=== PATIENT | female | born 1965 | race Native Hawaiian/Other Pacific Islander ===

== ENCOUNTER 2018-06-03 10:12 | Emergency (ER) | payer SELFPAY ==
[2018-06-03 10:25] VITALS: BP 111/74; PULSE 61; RESP 16; TEMP 98; O2SAT 98
[2018-06-03] MEDS ORDERED: Tetracaine 0.5% Ophth 2 ML BOTTLE OD ONE (10:34)
--- NOTE | 2018-06-03 10:35 | C.PDOC ---
History Of Present Illness 52 yo female, presents with right eye redness x 2 days. no fevers, no other complaints. started w/o provoking symptoms. Time Seen by Provider: 06/03/18 10:25 Chief Complaint (Nursing): ENT Problem Past Medical History Reviewed: Historical Data, Nursing Documentation, Vital Signs Vital Signs: Last Vital Signs Temp 98 F 06/03/18 10:22 Pulse 61 06/03/18 10:22 Resp 16 06/03/18 10:22 BP 111/74 06/03/18 10:22 Pulse Ox 98 06/03/18 10:35 Family History: States: Unknown Family Hx - Social History Hx Alcohol Use: No Hx Substance Use: No - Immunization History Hx Tetanus Toxoid Vaccination: No Hx Influenza Vaccination: No Hx Pneumococcal Vaccination: No Review Of Systems Eyes: Positive for: Redness Physical Exam - Physical Exam Appears: Well, No Acute Distress Skin: Normal Color, Warm, Dry Eye(s): bilateral: PERRL, EOMI, right: Normal Inspection (right conjunctival injection eomi), Other Nose: Normal Throat: Normal Neck: Normal Cardiovascular: Rhythm Regular Respiratory: Normal Breath Sounds Gastrointestinal/Abdominal: Normal Exam Back: Normal Inspection Extremity: Normal ROM ED Course And Treatment O2 Sat by Pulse Oximetry: 98 Medical Decision Making Medical Decision Making: suspect conjunctiviis pt denies trauma. iop 17 (95%). advise outpt fu. no contacts Disposition - Disposition Referrals: Remi Pal [Staff Provider] - Disposition: HOME/ ROUTINE Disposition Time: 10:51 Condition: STABLE Additional Instructions: please follow up with specialist. you may need further testing and workup . return to er with worsening symptoms or concerns. Prescriptions: Polymyxin/Trimethoprim Sulfate [Polytrim Ophth Soln] 1 drop RIGHTEYE Q4 #1 bottle Instructions: Conjunctivitis ([place]) Forms: [employer] (Greek) - Clinical Impression Clinical Impression: Conjunctivitis
[2018-06-03] MEDS ORDERED: Tetracaine 0.5% Ophth (OR ONLY) ONE (10:39)
== END 2018-06-03 11:02 | disposition home or self-care (01) ==
LOC: C.ER 10:12
DX: H10.9 Unspecified conjunctivitis (principal)